=== PATIENT | male | born 1955 | race Hispanic/Latino ===

== ENCOUNTER 2018-02-21 21:27 | Emergency (ER) | payer SELFPAY ==
[2018-02-21] MEDS ORDERED: KETOROLAC 30 MG/ML INJ ONE (22:06)
--- NOTE | 2018-02-21 22:45 | ER ---
Nurse's Notes [facility] Name: Fawad Hartley Age: 62 yrs Sex: Male : 1955 Arrival Date: 02/21/2018 Time: 21:33 Bed 5 Private MD: Diagnosis: Headache Presentation: 02/21 21:44 Presenting complaint: Patient states: intermittent headache since 02/17/18. pt ak1 stated the pain right side behind he ear. Transition of care: patient was not received from another setting of care. Onset of symptoms was February 17, 2018. Initial Sepsis Screen: Does the patient meet any 2 criteria? No. Patient's initial sepsis screen is negative. Does the patient have a suspected source of infection? No. Patient's initial sepsis screen is negative. Care prior to arrival: None. 21:44 Method Of Arrival: Ambulatory ak1 21:44 Acuity: ESVIN 3 ak1 Triage Assessment: 21:42 Headache History: Denies prior headaches. General: Appears in no apparent distress. ak1 Behavior is calm, cooperative. Pain: Complains of pain in headache Pain currently is 5 out of 10 on a pain scale. Pain began intermittent pain since 02/17/18 Also complains of no other associated symptoms. EENT: No signs and/or symptoms were reported regarding the EENT system. Neuro: Level of Consciousness is awake, alert, obeys commands, Oriented to person, place, time, situation, Television Repair Teacher are equal bilaterally Moves all extremities. Gait is steady, Speech is normal, Facial symmetry appears normal. Cardiovascular: No deficits noted. Respiratory: No deficits noted. GI: No signs and/or symptoms were reported involving the gastrointestinal system. : No signs and/or symptoms were reported regarding the genitourinary system. Derm: No signs and/or symptoms reported regarding the dermatologic system. Musculoskeletal: No signs and/or symptoms reported regarding the musculoskeletal system. Historical: - Allergies: 21:42 No Known Allergies; ak1 - Home Meds: 21:42 lisinopril 20 mg Oral tab 1 tab once daily [Active]; metformin 1,000 mg Oral TG24 1 tab ak1 2 times per day [Active]; - PMHx: 21:42 Hypertension; Diabetes - NIDDM; ak1 - PSHx: 21:42 Cholecystectomy; left ankle - hardware in place; ak1 - Immunization history:: Adult Immunizations unknown. - Social history:: Smoking status: Patient/guardian denies using tobacco. Screenin:45 Abuse screen: Denies threats or abuse. Denies injuries from another. Nutritional ak1 screening: No deficits noted. Tuberculosis screening: No symptoms or risk factors identified. Fall Risk None identified. Assessment: 22:08 Reassessment: patient sent to ct. mg2 22:20 General: Appears in no apparent distress. comfortable, Behavior is calm, cooperative. mg2 Pain: Complains of pain in head Pain does not radiate. Pain currently is 5 out of 10 on a pain scale. Quality of pain is described as aching, Pain began 4 days ago Is intermittent, Alleviated by rest. Neuro: Level of Consciousness is awake, alert, obeys commands, Oriented to person, place, time, situation. Cardiovascular: Capillary refill < 3 seconds Patient's skin is warm and dry. Respiratory: Airway is patent Respiratory effort is even, unlabored, Respiratory pattern is regular, symmetrical. GI: No signs and/or symptoms were reported involving the gastrointestinal system. : No signs and/or symptoms were reported regarding the genitourinary system. EENT: No signs and/or symptoms were reported regarding the EENT system. Derm: Skin is intact, Skin is pink, warm \T\ dry. normal. Musculoskeletal: No signs and/or symptoms reported regarding the musculoskeletal system. Vital Signs: 21:42 BP 152 / 90; Pulse 75; Resp 18; Temp 97.8(TE); Pulse Ox 98% on R/A; Weight 83.91 kg ak1 (R); Height 5 ft. 4 in. (162.56 cm) (R); Pain 5/10; 22:17 BP 148 / 79; Pulse 66; Resp 18; Pulse Ox 98% on R/A; ea 23:00 BP 130 / 78; Pulse 78; Resp 18; Pulse Ox 100% on R/A; Pain 0/10; mg2 23:30 BP 130 / 81; Pulse 60; Resp 18; Pulse Ox 98% on R/A; ea 21:42 Body Mass Index 31.75 (83.91 kg, 162.56 cm) ak1 Sin Coma Score: 22:49 Eye Response: spontaneous(4). Verbal Response: oriented(5). Motor Response: obeys tw4 commands(6). Total: 15. ED Course: 21:33 Patient arrived in ED. al2 21:42 Arm band placed on Patient placed in an exam room, Patient notified of wait time. ak1 21:45 Triage completed. ak1 21:45 Patient has correct armband on for positive identification. ak1 21:52 Braydon Tobar MD is Attending Physician. tw4 22:03 Mynor Coronel, RN is Primary Nurse. mg2 22:20 Head Brain Wo Cont In Process Unspecified. EDMS 22:22 No provider procedures requiring assistance completed. mg2 23:51 Patient did not have IV access during this emergency room visit. mg2 Administered Medications: 22:20 Drug: TORadol 30 mg Route: IM; Site: right gluteus; mg2 22:54 Follow up: Response: No adverse reaction; Pain is decreased mg2 Outcome: 22:44 Discharge ordered by MD. tw4 23:51 Discharged to home ambulatory, with family. mg2 23:51 Condition: stable 23:51 Discharge instructions given to patient, family, Instructed on discharge instructions, follow up and referral plans. Demonstrated understanding of instructions, follow-up care, medications, Prescriptions given X 1. 23:52 Patient left the ED. mg2 Signatures: Dispatcher [employer] EDMS Wendy Nath RN RN ak1 Cristiane Mendez, RN Mesha Salomon ea al2 Braydon Tobar MD MD tw4 Mynor Coronel, RN RN mg2 Corrections: (The following items were deleted from the chart) 22:22 22:13 In radiology for Head Brain Wo Cont+CT.RAD.BRZ. EDMS EDMS
--- NOTE | 2018-02-21 22:45 | EDPHYS ---
Physician Documentation [facility] Name: Fawad Hartley Age: 62 yrs Sex: Male : 1955 Arrival Date: 02/21/2018 Time: 21:33 Bed 5 Private MD: ED Physician Braydon Tobar HPI: 02/21 22:48 This 62 yrs old Male presents to ER via Ambulatory with complaints of Headache.tw4 22:48 The patient complains of pain to the right gnosticist, left side of the back of head and tw4 left occipital area. The patient describes the headache as pounding, a pressure, throbbing. Onset: The symptoms/episode began/occurred today. Associated signs and symptoms: The patient has no apparent associated signs or symptoms. Severity of symptoms: At its worst the pain was moderate, in the emergency department the pain is unchanged. The patient has not experienced similar symptoms in the past. Historical: - Allergies: 21:42 No Known Allergies; ak1 - Home Meds: 21:42 lisinopril 20 mg Oral tab 1 tab once daily [Active]; metformin 1,000 mg Oral TG24 1 tab ak1 2 times per day [Active]; - PMHx: 21:42 Hypertension; Diabetes - NIDDM; ak1 - PSHx: 21:42 Cholecystectomy; left ankle - hardware in place; ak1 - Immunization history:: Adult Immunizations unknown. - Social history:: Smoking status: Patient/guardian denies using tobacco. ROS: 22:48 Constitutional: Negative for fever, chills, and weight loss, Cardiovascular: Negative tw4 for chest pain, palpitations, and edema, Respiratory: Negative for shortness of breath, cough, wheezing, and pleuritic chest pain, Abdomen/GI: Negative for abdominal pain, nausea, vomiting, diarrhea, and constipation, MS/Extremity: Negative for injury and deformity, Skin: Negative for injury, rash, and discoloration. 22:48 Neuro: Positive for headache, Negative for altered mental status, dizziness, gait disturbance, numbness, seizure activity, speech changes, syncope, near syncope, tinnitus. Exam: 22:48 Constitutional: This is a well developed, well nourished patient who is awake, alert, tw4 and in no acute distress. Head/Face: Normocephalic, atraumatic. Chest/axilla: Normal chest wall appearance and motion. Nontender with no deformity. No lesions are appreciated. Cardiovascular: Regular rate and rhythm with a normal S1 and S2. No gallops, murmurs, or rubs. Normal PMI, no JVD. No pulse deficits. Respiratory: Lungs have equal breath sounds bilaterally, clear to auscultation and percussion. No rales, rhonchi or wheezes noted. No increased work of breathing, no retractions or nasal flaring. Abdomen/GI: Soft, non-tender, with normal bowel sounds. No distension or tympany. No guarding or rebound. No evidence of tenderness throughout. Back: No spinal tenderness. No costovertebral tenderness. Full range of motion. MS/ Extremity: Pulses equal, no cyanosis. Neurovascular intact. Full, normal range of motion. Neuro: Awake and alert, GCS 15, oriented to person, place, time, and situation. Cranial nerves II-XII grossly intact. Motor strength 5/5 in all extremities. Sensory grossly intact. Cerebellar exam normal. Normal gait. Vital Signs: 21:42 BP 152 / 90; Pulse 75; Resp 18; Temp 97.8(TE); Pulse Ox 98% on R/A; Weight 83.91 kg ak1 (R); Height 5 ft. 4 in. (162.56 cm) (R); Pain 5/10; 22:17 BP 148 / 79; Pulse 66; Resp 18; Pulse Ox 98% on R/A; ea 23:00 BP 130 / 78; Pulse 78; Resp 18; Pulse Ox 100% on R/A; Pain 0/10; mg2 23:30 BP 130 / 81; Pulse 60; Resp 18; Pulse Ox 98% on R/A; ea 21:42 Body Mass Index 31.75 (83.91 kg, 162.56 cm) ak1 [place] Coma Score: 22:49 Eye Response: spontaneous(4). Verbal Response: oriented(5). Motor Response: obeys tw4 commands(6). Total: 15. MDM: 21:52 Patient medically screened. tw4 22:49 Differential diagnosis: cluster headache, epidural hematoma, hypertensive headache, tw4 meningitis, trigeminal neuralgia, uremia. Data reviewed: vital signs, nurses notes. Counseling: I had a detailed discussion with the patient and/or guardian regarding: the historical points, exam findings, and any diagnostic results supporting the discharge/admit diagnosis, radiology results. Special discussion: I discussed with the patient/guardian in detail that at this point there is no indication for admission to the hospital. It is understood, however, that if the symptoms persist or worsen the patient needs to return immediately for re-evaluation. 02/21 22:17 Order name: Head Brain Wo Cont EDMS Administered Medications: 22:20 Drug: TORadol 30 mg Route: IM; Site: right gluteus; mg2 22:54 Follow up: Response: No adverse reaction; Pain is decreased mg2 Disposition: 02/21/18 22:44 Discharged to Home. Impression: Headache. - Condition is Stable. - Discharge Instructions: General Headache Without Cause, Migraine Headache. - Prescriptions for Fiorinal 50- 325-40 mg Oral Capsule - take 1 capsule by ORAL route every 4 hours As needed - not to exceed 6 capsules per day; 20 capsule. - Medication Reconciliation Form, Thank You Letter, Antibiotic Education, Prescription Opioid Use form. - Follow up: Private Physician; When: Upon discharge from the Emergency Department; Reason: Recheck today's complaints, Re-evaluation by your physician. - Problem is new. - Symptoms have improved. Signatures: Dispatcher [employer] [facility] Wendy Nath RN RN ak1 Braydon Tobar MD MD tw4 Mynor Coronel RN RN mg2 Corrections: (The following items were deleted from the chart) 22:22 21:56 Head Brain Wo Cont+CT.RAD.BRZ ordered. [facility] EDSC 23:52 22:44 02/21/2018 22:44 Discharged to Home. Impression: Headache. Condition is Stable. mg2 Forms are Medication Reconciliation Form, Thank You Letter, Antibiotic Education, Prescription Opioid Use. Follow up: Private Physician; When: Upon discharge from the Emergency Department; Reason: Recheck today's complaints, Re-evaluation by your physician. Problem is new. Symptoms have improved. tw4
--- NOTE | 2018-02-22 07:32 | RAD REPORT ---
EXAM DESCRIPTION: CT - Head Brain Wo Cont - 02/22/2018 3:36 am CLINICAL HISTORY: Right-sided headache A preliminary written report was provided at the time of the study, and the report was reviewed prio r to final dictation. COMPARISON: None. TECHNIQUE: Axial 5 mm thick images of the head were obtained without IV contrast. All CT scans are performed using dose optimization technique as appropriate and may include automated exposure control or mA/KV adjustment according to patient size. FINDINGS: No intracranial hemorrhage, mass, edema or shift of mid-line structures. No acute infarcti on changes seen. No abnormal extra-axial fluid collections. Ventricles are normal. Mastoid air cells and visualized portions of the paranasal sinuses are clear. No acute bony findings. IMPRESSION: Negative non-contrast CT head examination.
== END 2018-02-21 23:52 | disposition home or self-care (01) ==
LOC: ER 21:27
DX: R51 Headache (principal); I10 Essential (primary) hypertension; E11.9 Type 2 diabetes mellitus without complications
CPT/HCPCS: 70450; 96372; 99283

== ENCOUNTER 2018-12-01 19:00 | Emergency (ER) | payer SELFPAY ==
[2018-12-01 21:01] LABS: Absolute Lymphocytes (CBC) 3.3 K/uL (0.7-4.9); Absolute Monocytes 0.5 K/uL (0.1-1.3); Absolute Neutrophil 4.6 K/uL (1.8-8.0); Basophils % 1.1 % (0-1.3); Eosinophils % 1.9 % (0-4.4); Hematocrit 44.4 % (39.6-49.0); MPV 9.8 fL (7.6-11.3); Monocytes % 5.5 % (3.3-12.3)
[2018-12-01 21:03] LABS: Protime INR 0.92
[2018-12-01 21:24] LABS: ALT/SGPT 39 U/L (12-78); AST/SGOT 20 U/L (15-37); Albumin 4.3 g/dL (3.4-5.0); Alkaline Phosphatase 154 U/L (45-117); BUN Blood Urea Nitrogen 22 mg/dL (7-18); Bicarbonate 29 mmol/L (21-32); Bilirubin Direct 0.2 mg/dL (0-0.2); Bilirubin Total 0.8 mg/dL (0.2-1.0); Glucose Level 106 mg/dL (74-106); Magnesium 2.1 mg/dL (1.8-2.4); NT PRO-BNP 52 pg/mL (<125); Potassium 4.8 mmol/L (3.5-5.1); Protein, Total 7.8 g/dL (6.4-8.2); Sodium Level 141 mmol/L (136-145); Troponin (Emerg Dept Use Only) < 0.02 ng/mL (0.0-0.045)
--- NOTE | 2018-12-01 22:18 | ER ---
Nurse's Notes [facility] Name: Fawad Hartley Age: 63 yrs Sex: Male : 1955 Arrival Date: 12/01/2018 Time: 19:02 Bed 7 Private MD: Diagnosis: Encounter for general adult medical examination with abnormal findings Presentation: 12/01 19:45 Presenting complaint: Patient states: Pt reports he was sent by his physician for a ea potassium of 6.3 on 11/15/18. Pt denies pain or discomfort at this time. Transition of care: patient was not received from another setting of care. Onset of symptoms. Risk Assessment: Do you want to hurt yourself or someone else? Patient reports no desire to harm self or others. Initial Sepsis Screen: Does the patient meet any 2 criteria? No. Patient's initial sepsis screen is negative. Does the patient have a suspected source of infection? No. Patient's initial sepsis screen is negative. Care prior to arrival: None. 19:45 Method Of Arrival: Ambulatory ea 19:45 Acuity: ESVIN 3 ea Triage Assessment: 19:49 General: Appears in no apparent distress. Behavior is calm, cooperative, appropriate ea for age. Pain: Denies pain. Neuro: Level of Consciousness is awake, alert, obeys commands, Oriented to person, place, time. Cardiovascular: Patient's skin is warm and dry. Respiratory: Airway is patent Respiratory effort is even, unlabored, Respiratory pattern is regular, symmetrical. Derm: Skin is pink, warm \T\ dry. Historical: - Allergies: 19:49 No Known Allergies; ea - Home Meds: 19:49 metformin 1,000 mg Oral TG24 1 tab 2 times per day [Active]; Norvasc 10 mg Oral tab 1 ea tab once daily [Active]; - PMHx: 19:49 Diabetes - NIDDM; Hypertension; ea - PSHx: 19:49 left ankle - hardware in place; Cholecystectomy; ea - Immunization history:: Adult Immunizations up to date. - Social history:: Smoking status: Patient/guardian denies using tobacco. - Ebola Screening: : No symptoms or risks identified at this time. Screenin:33 Abuse screen: Denies threats or abuse. Denies injuries from another. Nutritional rr5 screening: No deficits noted. Tuberculosis screening: No symptoms or risk factors identified. Fall Risk IV access (20 points). Gait- Normal/Bed Rest/Wheelchair (0 pts) Mental Status- Oriented to own ability (0 pts). Total Alexander Fall Scale indicates No Risk (0-24 pts). Assessment: 20:30 General: Appears in no apparent distress. comfortable, Behavior is calm, cooperative, rr5 appropriate for age. Pain: Denies pain. Neuro: Level of Consciousness is awake, alert, obeys commands, Oriented to person, place, time, situation, Appropriate for age. Cardiovascular: Capillary refill < 3 seconds Patient's skin is warm and dry. Respiratory: Airway is patent Respiratory effort is even, unlabored, Respiratory pattern is regular, symmetrical. 20:30 GI: Abdomen is round. : No signs and/or symptoms were reported regarding the rr5 genitourinary system. EENT: No signs and/or symptoms were reported regarding the EENT system. Derm: Skin is intact, Skin temperature is warm. Musculoskeletal: Capillary refill < 3 seconds, Range of motion: intact in all extremities. 21:30 Reassessment: Patient appears in no apparent distress at this time. Patient is alert, rr5 oriented x 3, equal unlabored respirations, skin warm/dry/pink. awaiting for result. 22:46 Reassessment: Patient appears in no apparent distress at this time. Patient is alert, rr5 oriented x 3, equal unlabored respirations, skin warm/dry/pink. discharge instruction given and explained without complaints made. Patient denies pain at this time. Patient states feeling better. Vital Signs: 19:51 BP 169 / 83; Pulse 97; Resp 18; Temp 97.8; Pulse Ox 97% on R/A; Weight 78.93 kg; Height ea 5 ft. 2 in. (157.48 cm); 20:30 BP 154 / 99; Pulse 67; Resp 17; Pulse Ox 99% ; rr5 21:30 BP 151 / 88; Pulse 63; Resp 17; Pulse Ox 98% ; rr5 22:30 BP 133 / 70; Pulse 60; Resp 17; Pulse Ox 99% ; rr5 19:51 Body Mass Index 31.82 (78.93 kg, 157.48 cm) ea ED Course: 19:02 Patient arrived in ED. mr 19:48 Triage completed. ea 19:51 Arm band placed on right wrist. Patient placed in waiting room. ea 20:31 Patient has correct armband on for positive identification. Placed in gown. Bed in low tl2 position. Call light in reach. Side rails up X 1. Adult w/ patient. 20:31 EKG done, by ED staff. Inserted saline lock: 20 gauge in right antecubital area, using tl2 aseptic technique. Blood collected. 20:33 ophthalmic medical technician on. Pulse ox on. NIBP on. rr5 20:36 Abad Mederos RN is Primary Nurse. rr5 20:50 Christian Gonzalez MD is Attending Physician. gs 22:47 No provider procedures requiring assistance completed. IV discontinued, intact, rr5 bleeding controlled, No redness/swelling at site. Pressure dressing applied. Administered Medications: No medications were administered Outcome: 22:18 Discharge ordered by . 22:47 Discharged to home ambulatory, with family. rr5 22:47 Condition: stable 22:47 Discharge instructions given to patient, family, Instructed on discharge instructions, follow up and referral plans. Demonstrated understanding of instructions, follow-up care. 22:50 Patient left the ED. rr5 Signatures: Sangeeta Euceda Taylor RN RN tl2 Cristiane Mendez RN RN ea Starr, Gregory, MD MD Abad Mederos RN RN rr5 Corrections: (The following items were deleted from the chart) 22:49 22:47 Discharge instructions given to patient, family, Instructed on discharge rr5 instructions, follow up and referral plans. Demonstrated understanding of instructions, follow-up care, Prescriptions given X rr5
--- NOTE | 2018-12-01 22:18 | EDPHYS ---
Physician Documentation [facility] Name: Fawad Hartley Age: 63 yrs Sex: Male : 1955 Arrival Date: 12/01/2018 Time: 19:02 Bed 7 Private MD: ED Physician Christian Gonzalez HPI: 12/02 01:21 This 63 yrs old Male presents to ER via Ambulatory with complaints of high gs potassium. 01:21 Onset: The symptoms/episode began/occurred today. Severity of symptoms: At their worst gs the symptoms were very mild in the emergency department the symptoms are unchanged. The patient has not experienced similar symptoms in the past. The patient has been recently seen by a physician: the patient's primary care provider, with similar presenting complaints. Historical: - Allergies: 12/01 19:49 No Known Allergies; ea - Home Meds: 19:49 metformin 1,000 mg Oral TG24 1 tab 2 times per day [Active]; Norvasc 10 mg Oral tab 1 ea tab once daily [Active]; - PMHx: 19:49 Diabetes - NIDDM; Hypertension; ea - PSHx: 19:49 left ankle - hardware in place; Cholecystectomy; ea - Immunization history:: Adult Immunizations up to date. - Social history:: Smoking status: Patient/guardian denies using tobacco. - Ebola Screening: : No symptoms or risks identified at this time. ROS: 12/02 01:21 All other systems are negative. gs Exam: 01:21 Head/Face: Normocephalic, atraumatic. Eyes: Pupils equal round and reactive to light, gs extra-ocular motions intact. Lids and lashes normal. Conjunctiva and sclera are non-icteric and not injected. Cornea within normal limits. Periorbital areas with no swelling, redness, or edema. ENT: Nares patent. No nasal discharge, no septal abnormalities noted. Tympanic membranes are normal and external auditory canals are clear. Oropharynx with no redness, swelling, or masses, exudates, or evidence of obstruction, uvula midline. Mucous membranes moist. Neck: Trachea midline, no thyromegaly or masses palpated, and no cervical lymphadenopathy. Supple, full range of motion without nuchal rigidity, or vertebral point tenderness. No Meningismus. Chest/axilla: Normal chest wall appearance and motion. Nontender with no deformity. No lesions are appreciated. Cardiovascular: Regular rate and rhythm with a normal S1 and S2. No gallops, murmurs, or rubs. Normal PMI, no JVD. No pulse deficits. Respiratory: Lungs have equal breath sounds bilaterally, clear to auscultation and percussion. No rales, rhonchi or wheezes noted. No increased work of breathing, no retractions or nasal flaring. Abdomen/GI: Soft, non-tender, with normal bowel sounds. No distension or tympany. No guarding or rebound. No evidence of tenderness throughout. Back: No spinal tenderness. No costovertebral tenderness. Full range of motion. Skin: Warm, dry with normal turgor. Normal color with no rashes, no lesions, and no evidence of cellulitis. MS/ Extremity: Pulses equal, no cyanosis. Neurovascular intact. Full, normal range of motion. Neuro: Awake and alert, GCS 15, oriented to person, place, time, and situation. Cranial nerves II-XII grossly intact. Motor strength 5/5 in all extremities. Sensory grossly intact. Cerebellar exam normal. Normal gait. 01:21 Constitutional: The patient appears alert, awake. 01:21 ECG was reviewed by the Attending Physician. Vital Signs: 12/01 19:51 BP 169 / 83; Pulse 97; Resp 18; Temp 97.8; Pulse Ox 97% on R/A; Weight 78.93 kg; Height ea 5 ft. 2 in. (157.48 cm); 20:30 BP 154 / 99; Pulse 67; Resp 17; Pulse Ox 99% ; rr5 21:30 BP 151 / 88; Pulse 63; Resp 17; Pulse Ox 98% ; rr5 22:30 BP 133 / 70; Pulse 60; Resp 17; Pulse Ox 99% ; rr5 19:51 Body Mass Index 31.82 (78.93 kg, 157.48 cm) ea MDM: 20:58 Patient medically screened. 12/02 01:21 Data reviewed: vital signs, nurses notes. Counseling: I had a detailed discussion with the patient and/or guardian regarding: the historical points, exam findings, and any diagnostic results supporting the discharge/admit diagnosis, lab results, the need for outpatient follow up. Response to treatment: the patient's symptoms have markedly improved after treatment. 12/01 20:38 Order name: Basic Metabolic Panel tl2 12/01 20:38 Order name: CBC with Diff tl2 12/01 20:38 Order name: LFT's tl2 12/01 20:38 Order name: Magnesium tl2 12/01 20:38 Order name: NT PRO-BNP tl2 12/01 20:38 Order name: PT-INR tl2 12/01 20:38 Order name: Troponin (emerg Dept Use Only) tl2 12/01 21:05 Order name: CBC with Automated Diff; Complete Time: 22:09 EDMS 12/01 21:07 Order name: Protime (+INR); Complete Time: 22:09 EDMS 12/01 21:25 Order name: Basic Metabolic Panel; Complete Time: 22:09 EDMS 12/01 21:25 Order name: Liver (Hepatic) Function; Complete Time: 22:09 EDMS 12/01 21:25 Order name: Troponin (Emerg Dept Use Only); Complete Time: 22:09 EDMS 12/01 21:25 Order name: NT PRO-BNP; Complete Time: 22:09 EDMS 12/01 21:25 Order name: Magnesium; Complete Time: 22:09 EDMS 12/01 20:38 Order name: XRAY Chest (1 view) tl2 12/01 20:38 Order name: EKG; Complete Time: 20:39 tl2 12/01 20:38 Order name: Cardiac monitoring; Complete Time: 20:38 tl2 12/01 20:38 Order name: EKG - Nurse/Tech; Complete Time: 20:38 tl2 12/01 20:38 Order name: IV Saline Lock; Complete Time: 20:38 tl2 12/01 20:38 Order name: Labs collected and sent; Complete Time: 20:38 tl2 12/01 20:38 Order name: O2 Per Protocol; Complete Time: 20:38 tl2 12/01 20:38 Order name: O2 Sat Monitoring; Complete Time: 20:39 tl2 EC: Rate is 62 beats/min. Rhythm is regular. AK interval is normal. QRS interval is normal. gs QT interval is normal. No ST changes noted. Clinical impression: Normal ECG. Interpreted by me. Administered Medications: No medications were administered Disposition: 12/01/18 22:18 Discharged to Home. Impression: Encounter for general adult medical examination with abnormal findings. - Condition is Stable. - Discharge Instructions: Health Maintenance, Male. - Medication Reconciliation Form, Thank You Letter, Antibiotic Education, Prescription Opioid Use form. - Follow up: Private Physician; When: 1 - 2 days; Reason: Re-evaluation by your physician. Signatures: Dispatcher [employer] EDJoelle Restrepo RN RN tl2 Cristiane Mendez RN RN ea Christian Gonzalez MD MD gs Abad Mederos RN RN rr5 Corrections: (The following items were deleted from the chart) 12/01 22:50 22:18 12/01/2018 22:18 Discharged to Home. Impression: Encounter for general adult rr5 medical examination with abnormal findings. Condition is Stable. Forms are Medication Reconciliation Form, Thank You Letter, Antibiotic Education, Prescription Opioid Use. Follow up: Private Physician; When: 1 - 2 days; Reason: Re-evaluation by your physician. gs
--- NOTE | 2018-12-02 07:06 | EKG ---
Test Date: 2018-12-01 Test Time: 20:28:39 Photo Cartographer: GLORIA MEASUREMENT RESULTS: Intervals: Rate: 62 ND: 124 QRSD: 88 QT: 372 QTc: 377 [place]: P: 13 ND: 124 QRS: 22 T: 42 INTERPRETIVE STATEMENTS: Normal sinus rhythm Normal ECG Compared to ECG 11/11/2009 10:46:47 No significant changes Electronically Signed On 12-02-18 07:06:00 LABEL FUSER TENDER by Ananth Garcia
--- NOTE | 2018-12-02 07:18 | RAD REPORT ---
EXAM DESCRIPTION: RAD - Chest Single View - 12/01/2018 9:04 pm CLINICAL HISTORY: Abnormal potassium level, shortness of breath COMPARISON: November 2009 TECHNIQUE: AP portable chest image was obtained 2102 hours . FINDINGS: No focal lung mass. No mediastinal or hilar lymphadenopathy suspected. No infiltrate or ac [place] lung parenchymal process. Interstitial markings are similar to the comparison. Heart and vasculature are normal. No measurable pleural effusion and no pneumothorax. No acute bony abnormality seen. No acute aortic findings suspected. IMPRESSION: No acute cardiopulmonary process. No significant change from comparison.
== END 2018-12-01 22:50 | disposition home or self-care (01) ==
LOC: ER 19:00
DX: Z00.01 Encounter for general adult medical examination with abnormal findings (principal); I10 Essential (primary) hypertension; E11.9 Type 2 diabetes mellitus without complications
CPT/HCPCS: 36415; 71045; 80048; 80076; 83735; 83880; 84484; 85025; 85610; 93005; 99284

== ENCOUNTER 2020-03-29 09:05 | Emergency (ER) | payer SELFPAY ==
--- NOTE | 2020-03-29 11:23 | RAD REPORT ---
EXAM DESCRIPTION: RAD - Chest Pa And Lat (2 Views) - 03/29/2020 10:06 am CLINICAL HISTORY: COUGH, subjective fever, nonproductive cough COMPARISON: November 2018 TECHNIQUE: Frontal and lateral views of the chest were obtained. FINDINGS: The lungs are clear. Interstitial pattern matches comparison. Prominent pulmonary arterie s are also stable. Heart size is normal and central vasculature is within normal limits. No pleural effusion or pneumothorax seen. No acute bony finding noted. No aortic abnormality. IMPRESSION: No acute cardiopulmonary process. No significant change from comparison.
--- NOTE | 2020-03-29 11:30 | EDPHYS ---
Physician Documentation [facility] Name: Fawad Hartley Age: 64 yrs Sex: Male : 1955 Arrival Date: 03/29/2020 Time: 09:07 Bed 14 Private MD: ED Physician Mihir Izaguirre HPI: 03/29 09:45 This 64 yrs old Male presents to ER via Ambulatory with complaints of Fever, kb Vomiting. 09:45 The patient or guardian reports cough, that is intermittent, described as mild, with no kb sputum, flu symptoms, low-grade fever. Onset: The symptoms/episode began/occurred 4 day(s) ago. Severity of symptoms: At their worst the symptoms were moderate, in the emergency department the symptoms are unchanged. Modifying factors: The symptoms are alleviated by nothing, the symptoms are aggravated by nothing. Associated signs and symptoms: Pertinent positives: fever, nausea, vomiting, Pertinent negatives: chest pain, diarrhea, ear ache, rhinorrhea, sore throat. The patient has not experienced similar symptoms in the past. The patient has not recently seen a physician. 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 When he got home that night he started feeling bad. c/o slight cough, headache and subjective fever. Has nausea and vomited once on the way here. . Historical: - Allergies: 09:46 No Known Allergies; hb - Home Meds: 09:46 lisinopril 20 mg Oral tab 1 tab once daily [Active]; metformin 1,000 mg Oral TG24 1 tab hb 2 times per day [Active]; Norvasc 10 mg Oral tab 1 tab once daily [Active]; - PMHx: 09:46 Diabetes - NIDDM; Hypertension; hb - PSHx: 09:46 left ankle - hardware in place; Cholecystectomy; hb - Immunization history:: Adult Immunizations up to date. - Social history:: Smoking status: Patient denies any tobacco usage or history of. ROS: 09:42 ENT: Negative for injury, pain, and discharge, Neck: Negative for injury, pain, and kb swelling, Cardiovascular: Negative for chest pain, palpitations, and edema, Back: Negative for injury and pain, MS/Extremity: Negative for injury and deformity, Skin: Negative for injury, rash, and discoloration. 09:42 Constitutional: Positive for fever. 09:42 Respiratory: Positive for cough, Negative for dyspnea on exertion, hemoptysis, orthopnea, pleurisy, shortness of breath, sputum production, wheezing. 09:42 Abdomen/GI: Positive for nausea and vomiting, Negative for abdominal pain, diarrhea, constipation, abdominal cramps, abdominal distension, anorexia. 09:42 Neuro: Positive for headache. Exam: 09:42 Constitutional: This is a well developed, well nourished patient who is awake, alert, kb and in no acute distress. Head/Face: Normocephalic, atraumatic. Eyes: Pupils equal round and reactive to light, extra-ocular motions intact. Lids and lashes normal. Conjunctiva and sclera are non-icteric and not injected. Cornea within normal limits. Periorbital areas with no swelling, redness, or edema. ENT: Nares patent. No nasal discharge, no septal abnormalities noted. Tympanic membranes are normal and external auditory canals are clear. Oropharynx with no redness, swelling, or masses, exudates, or evidence of obstruction, uvula midline. Mucous membranes moist. Neck: Trachea midline, no thyromegaly or masses palpated, and no cervical lymphadenopathy. Supple, full range of motion without nuchal rigidity, or vertebral point tenderness. No Meningismus. Chest/axilla: Normal chest wall appearance and motion. Nontender with no deformity. No lesions are appreciated. Cardiovascular: Regular rate and rhythm with a normal S1 and S2. No gallops, murmurs, or rubs. Normal PMI, no JVD. No pulse deficits. Respiratory: Lungs have equal breath sounds bilaterally, clear to auscultation and percussion. No rales, rhonchi or wheezes noted. No increased work of breathing, no retractions or nasal flaring. Abdomen/GI: Soft, non-tender, with normal bowel sounds. No distension or tympany. No guarding or rebound. No evidence of tenderness throughout. Back: No spinal tenderness. No costovertebral tenderness. Full range of motion. Skin: Warm, dry with normal turgor. Normal color with no rashes, no lesions, and no evidence of cellulitis. MS/ Extremity: Pulses equal, no cyanosis. Neurovascular intact. Full, normal range of motion. Neuro: Awake and alert, GCS 15, oriented to person, place, time, and situation. Cranial nerves II-XII grossly intact. Motor strength 5/5 in all extremities. Sensory grossly intact. Cerebellar exam normal. Normal gait. Vital Signs: 09:41 BP 150 / 70; Pulse 74; Resp 16; Temp 98.3; Pulse Ox 100% ; Weight 84.82 kg; Height 5 hb ft. 8 in. (172.72 cm); Pain 9/10; 11:54 BP 142 / 72; Pulse 70; Resp 16; Pulse Ox 99% ; sv 09:41 Body Mass Index 28.43 (84.82 kg, 172.72 cm) hb MDM: 09:32 Patient medically screened. kb 09:42 Data reviewed: vital signs, nurses notes. Data interpreted: Pulse oximetry: on room air kb is 100 %. Interpretation: normal. 11:28 Counseling: I had a detailed discussion with the patient and/or guardian regarding: the kb historical points, exam findings, and any diagnostic results supporting the discharge/admit diagnosis, lab results, radiology results, the need for outpatient follow up, a family practitioner, to return to the emergency department if symptoms worsen or persist or if there are any questions or concerns that arise at home. 03/29 09:39 Order name: Flu; Complete Time: 10:45 kb 03/29 09:39 Order name: Chest Pa And Lat (2 Views) XRAY; Complete Time: 11:28 kb Administered Medications: No medications were administered Disposition: 14:59 Co-signature as Attending Physician, Mihir Izaguirre MD I agree with the assessment and kdr plan of care. Disposition: 03/29/20 11:29 Discharged to Home. Impression: Fever, unspecified, Cough. - Condition is Stable. - Discharge Instructions: Cough, Adult, [id number], Viral Respiratory Infection, [id number], Fever, Adult, [id number]. - Medication Reconciliation Form, Thank You Letter, Antibiotic Education, Prescription Opioid Use, Work release form form. - Follow up: Emergency Department; When: As needed; Reason: Worsening of condition. Follow up: Private Physician; When: 2 - 3 days; Reason: Recheck today's complaints, Continuance of care, Re-evaluation by your physician. Signatures: Dispatcher [employer] Marilyn Lechuga, VERNON-Lulú Driscoll RN RN sv Mihir Izaguirre MD MD [facility] Lynn Suresh, ERYN RN Corrections: (The following items were deleted from the chart) 11:55 11:29 03/29/2020 11:29 Discharged to Home. Impression: Fever, unspecified; Cough. sv Condition is Stable. Forms are Medication Reconciliation Form, Thank You Letter, Antibiotic Education, Prescription Opioid Use. Follow up: Emergency Department; When: As needed; Reason: Worsening of condition. Follow up: Private Physician; When: 2 - 3 days; Reason: Recheck today's complaints, Continuance of care, Re-evaluation by your physician. kb
--- NOTE | 2020-03-29 11:30 | ER ---
Nurse's Notes [facility] Name: Fawad Hartley Age: 64 yrs Sex: Male : 1955 Arrival Date: 03/29/2020 Time: 09:07 Bed 14 Private MD: Diagnosis: Fever, unspecified;Cough Presentation: 03/29 09:41 Chief complaint: Headache, subjective fever, and nonproductive cough x 4 days, vomit x hb 1 today. Coronavirus screen: Proceed with normal triage. Patient reports a cough. mask placed on pt, pt instructed to keep mask in place, pt verbalized understanding of instructions. Ebola Screen: No symptoms or risks identified at this time. Initial Sepsis Screen: Does the patient meet any 2 criteria? No. Patient's initial sepsis screen is negative. Does the patient have a suspected source of infection? No. Patient's initial sepsis screen is negative. Risk Assessment: Do you want to hurt yourself or someone else? Patient reports no desire to harm self or others. Onset of symptoms was March 25, 2020. 09:41 Method Of Arrival: Ambulatory hb 09:41 Acuity: ESVIN 4 hb Triage Assessment: 09:41 General: Appears in no apparent distress. comfortable, well groomed, well developed, sv Behavior is calm, cooperative, appropriate for age. General: Reports subjective fever x 4 days. Pain: Denies pain. Neuro: Level of Consciousness is awake, alert, obeys commands, Oriented to person, place, time, situation, Moves all extremities. Full function. Respiratory: Airway is patent Respiratory effort is even, unlabored, Respiratory pattern is regular, symmetrical. GI: Abdomen is flat, non-distended, Reports vomiting. Derm: Skin is pink, warm \T\ dry. Historical: - Allergies: 09:46 No Known Allergies; hb - Home Meds: :46 lisinopril 20 mg Oral tab 1 tab once daily [Active]; metformin 1,000 mg Oral TG24 1 tab hb 2 times per day [Active]; Norvasc 10 mg Oral tab 1 tab once daily [Active]; - PMHx: 09:46 Diabetes - NIDDM; Hypertension; hb - PSHx: :46 left ankle - hardware in place; Cholecystectomy; hb - Immunization history:: Adult Immunizations up to date. - Social history:: Smoking status: Patient denies any tobacco usage or history of. Screenin:41 Abuse screen: Denies threats or abuse. Denies injuries from another. Nutritional sv screening: No deficits noted. Tuberculosis screening: No symptoms or risk factors identified. Fall Risk None identified. Assessment: 10:30 Reassessment: Patient appears in no apparent distress at this time. No changes from sv previously documented assessment. Patient and/or family updated on plan of care and expected duration. Pain level reassessed. Patient is alert, oriented x 3, equal unlabored respirations, skin warm/dry/pink. 11:54 Reassessment: Patient appears in no apparent distress at this time. No changes from sv previously documented assessment. Patient and/or family updated on plan of care and expected duration. Pain level reassessed. Patient is alert, oriented x 3, equal unlabored respirations, skin warm/dry/pink. Vital Signs: 09:41 BP 150 / 70; Pulse 74; Resp 16; Temp 98.3; Pulse Ox 100% ; Weight 84.82 kg; Height 5 hb ft. 8 in. (172.72 cm); Pain 9/10; 11:54 BP 142 / 72; Pulse 70; Resp 16; Pulse Ox 99% ; sv 09:41 Body Mass Index 28.43 (84.82 kg, 172.72 cm) hb ED Course: 09:07 Patient arrived in ED. as 09:15 Lulú Middleton, RN is Primary Nurse. sv 09:17 Mihir Izaguirre MD is Attending Physician. kdr 09:31 Marilyn Saucedo FNP-C is [facility]. kb 09:41 Patient has correct armband on for positive identification. Bed in low position. Call sv light in reach. Pulse ox on. NIBP on. Door closed. Head of bed elevated. 09:44 Triage completed. hb 09:45 Arm band placed on. hb 10:05 Chest Pa And Lat (2 Views) XRAY In Process Unspecified. EDMS 11:02 Awaiting radiology results. sv 11:54 No provider procedures requiring assistance completed. Patient did not have IV access sv during this emergency room visit. Administered Medications: No medications were administered Outcome: 11:29 Discharge ordered by . kb 11:54 Discharged to home ambulatory, with friend. sv 11:54 Condition: stable 11:54 Discharge instructions given to patient, Instructed on discharge instructions, follow up and referral plans. Demonstrated understanding of instructions, follow-up care. 11:55 Patient left the ED. sv Signatures: Dispatcher [employer] Marilyn Lechuga, PIERRE JUNIOR-Luúl Jones, RN RN Mihir Prakash MD MD kdr Martinez, Amelia as Baxter, Heather, RN RN
[2020-03-29 12:20] VITALS: TEMP 98.3
[2020-03-29 12:29] VITALS: BP 142/72; O2SAT 99
== END 2020-03-29 11:55 | disposition home or self-care (01) ==
LOC: ER 09:05
DX: R50.9 Fever, unspecified (principal); R05 Cough; I10 Essential (primary) hypertension; E11.9 Type 2 diabetes mellitus without complications
CPT/HCPCS: 71046; 87804; 99283